=== PATIENT | female | born 1975 ===

== ENCOUNTER 2017-06-02 19:41 | Emergency (ER) | payer OTHER ==
[2017-06-02 19:41] VITALS: BMI 34.9
[2017-06-02 19:55] VITALS: O2SAT 98
--- NOTE | 2017-06-02 21:18 | C.PDOC ---
History Of Present Illness Katie Gabriel is a 42 year old female, with no significant past medical history, who presents to the emergency department complaining of fever, cough, and runny nose onset for x2 days. Patient did not receive a flu shot this year. She denies any nausea, vomit, sob, chest pain, headache, rash or diarrhea. Daughter has the same symptoms. Took Advil prior to arrival . 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 denies: Nausea, Vomiting , Diarrhea Ear Symptoms: Bilateral: None Past Medical History Reviewed: Historical Data, Nursing Documentation, Vital Signs Vital Signs: Last Vital Signs Temp 97.9 F 06/02/17 21:36 Pulse 68 06/02/17 21:36 Resp 19 06/02/17 21:36 BP 115/77 06/02/17 21:36 Pulse Ox 98 06/02/17 21:55 - Medical History PMH: No Chronic Diseases Surgical History: Appendectomy Family History: States: Unknown Family Hx - Social History Hx Tobacco Use: No Hx Alcohol Use: No Hx Substance Use: No Review Of Systems Constitutional: Positive for: Fever ENT: Positive for: Nose Discharge Respiratory: Positive for: Cough Gastrointestinal: Negative for: Nausea, Vomiting, Diarrhea Physical Exam - Physical Exam Appears: Well, Non-toxic, No Acute Distress Skin: Normal Color, Warm, Dry Head: Atraumatic, Normacephalic Eye(s): bilateral: Normal Inspection, PERRL, EOMI Ear(s): Bilateral: Normal Nose: Normal Oral Mucosa: Moist Throat: Normal, No Erythema, No Exudate Neck: Normal ROM, Supple Chest: Symmetrical, No Tenderness Cardiovascular: Rhythm Regular Respiratory: Normal Breath Sounds, No Wheezing Gastrointestinal/Abdominal: Normal Exam, Soft, No Tenderness, No Guarding, No Rebound Back: Normal Inspection, No CVA Tenderness, No Vertebral Tenderness, No Paraspinal Tenderness Extremity: Normal ROM, No Tenderness, No Deformity, No Swelling Neurological/Psych: Oriented x3 ED Course And Treatment O2 Sat by Pulse Oximetry: 98 (RA) Pulse Ox Interpretation: Normal Progress Note: Daughter is being treated for the flu. Pt symptoms consistent with the flu. Instructed symptomatic treatment and follow up with PMD in1 -2 days. Return to ER if symtpoms persist or worsen. Medical Decision Making Medical Decision Making: Initial Impression: Influenza Initial Plan: --Motrin tab 600 mg PO --Tamiflu Cap 75 mg PO --reevaluation Disposition - Disposition Referrals: Iain Samuels MD [Staff Provider] - Disposition: HOME/ ROUTINE Disposition Time: 21:16 Condition: STABLE Additional Instructions: Vaya a harrison mdico o la clnica en 2-5 gallagher sin falta, para mas evaluacin. Trevorton los medicamentos hermelindo indicado. Volver a la so de emergencia en cualquier momento si los sntomas persisten o empeoran. Prescriptions: Ibuprofen [Motrin] 600 mg PO Q6 PRN #20 tab PRN Reason: Pain, Mild (1-3) Oseltamivir Phosphate [Tamiflu] 75 mg PO BID #10 capsule Instructions: Influenza (ED) Forms: [email or web address] (Danish) Print Language: MAORI - Clinical Impression Clinical Impression: Viral illness, Upper respiratory infection - Scribe Statement Lalo Jolley All medical record entries made by the Scribe were at my direction and personally dictated by me. I have reviewed the chart and agree that the record accurately reflects my personal performance of the history, physical exam, medical decision making, and the department course for this patient. I have also personally directed, reviewed, and agree with the discharge instructions and disposition.
[2017-06-02 21:37] VITALS: BP 115/77; PULSE 68; RESP 19; TEMP 97.9
== END 2017-06-02 21:37 | disposition home or self-care (01) ==
LOC: C.ER 19:41
DX: J06.9 Acute upper respiratory infection, unspecified (principal); B34.9 Viral infection, unspecified

== ENCOUNTER 2017-12-18 09:24 | Emergency (ER) | payer OTHER ==
[2017-12-18 09:25] VITALS: BMI 33.7
[2017-12-18 09:34] VITALS: TEMP 98.4; O2SAT 99
--- NOTE | 2017-12-18 10:27 | C.PDOC ---
History Of Present Illness 42 year old female presents to the emergency department with complaints of pain to her left knee for the past month. The patient denies any trauma but the pain is worsened with walking. Patient denies any weaknesses, tingling, or numbness. Time Seen by Provider: 12/18/17 10:15 Chief Complaint (Nursing): Lower Extremity Problem/Injury History Per: Patient History/Exam Limitations: no limitations Onset/Duration Of Symptoms: Days Current Symptoms Are (Timing): Still Present Severity: Mild Pain Scale Rating Of: 4 Recent travel outside of the [place]: No - Knee Alleviating Factor(s): Elevation Past Medical History Reviewed: Historical Data, Nursing Documentation, Vital Signs Vital Signs: Last Vital Signs Temp 98.4 F 12/18/17 09:32 Pulse 66 12/18/17 10:55 Resp 16 12/18/17 10:55 BP 101/69 12/18/17 10:55 Pulse Ox 99 12/18/17 12:58 Surgical History: Appendectomy Family History: States: No Known Family Hx - Social History Hx Tobacco Use: No Hx Alcohol Use: No Hx Substance Use: No Review Of Systems Except As Marked, All Systems Reviewed And Found Negative. Constitutional: Negative for: Fever, Chills Cardiovascular: Negative for: Chest Pain Respiratory: Negative for: Shortness of Breath Gastrointestinal: Negative for: Nausea, Vomiting Musculoskeletal: Positive for: Foot Pain (Left) Neurological: Negative for: Weakness, Numbness Physical Exam - Physical Exam Appears: Non-toxic, No Acute Distress Skin: Warm, Dry, No Rash Head: Atraumatic, Normacephalic Eye(s): bilateral: Normal Inspection Oral Mucosa: Moist Neck: Normal ROM, Supple Back: Normal Inspection, No CVA Tenderness, No Vertebral Tenderness, No Paraspinal Tenderness Extremity: Normal ROM, No Tenderness, No Pedal Edema, Capillary Refill (< 2 sec) , No Deformity, Swelling (Minimal swelling on the left lateral foot) Pulses: Left Dorsalis Pedis: Normal, Right Dorsalis Pedis: Normal Neurological/Psych: Oriented x3, Normal Speech, Normal Motor, Normal Sensation Gait: Steady ED Course And Treatment O2 Sat by Pulse Oximetry: 99 (RA) Pulse Ox Interpretation: Normal - Other Rad Tibia/Fibula X-Ray X-Ray: Read By Radiologist Interpretation: FINDINGS: BONES: No fracture or destructive lesion. JOINT SPACES: Unremarkable. OTHER FINDINGS: None. IMPRESSION: Unremarkable radiographs of the left tibia and fibula. Medical Decision Making Medical Decision Making: Plan: -Left Tibia Fibula X-Ray -Motrin 600 mg PO xrays are negative for fracture or dislocation. On re-exam, the patient reports improvement of symptoms. Ambulatory in the Ed with steady gait. Patient was instructed to follow up with the medical doctor/clinic within 1-2 days. return if worsened. Disposition - Disposition Referrals: Vinicius Thayer MD [Staff Provider] - [facility] [Outside] Disposition: HOME/ ROUTINE Disposition Time: 10:53 Condition: STABLE Additional Instructions: Follow up with the Orthopedist within 1-2 days. return if worsened. 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 - Scribe Statement The provider has reviewed the documentation as recorded by the Scribe Rosi De La Garza All medical record entries made by the Irmaibирина were at my direction and personally dictated by me. I have reviewed the chart and agree that the record accurately reflects my personal performance of the history, physical exam, medical decision making, and the department course for this patient. I have also personally directed, reviewed, and agree with the discharge instructions and disposition.
[2017-12-18 10:56] VITALS: BP 101/69; PULSE 66; RESP 16
--- NOTE | 2017-12-18 12:51 | RAD ---
Date of service: 12/18/2017 PROCEDURE: Radiographs of the left tibia and fibula. HISTORY: Pain and swelling at ankle and knee COMPARISON: None available. TECHNIQUE: Frontal and lateral views obtained. FINDINGS: BONES: No fracture or destructive lesion. JOINT SPACES: Unremarkable. OTHER FINDINGS: None. IMPRESSION: Unremarkable radiographs of the left tibia and fibula.
== END 2017-12-18 11:02 | disposition home or self-care (01) ==
LOC: C.ER 09:24
DX: M25.562 Pain in left knee (principal); M79.672 Pain in left foot